=== PATIENT | male | born 1985 | race Caucasian/White ===

== ENCOUNTER 2016-11-25 19:22 | Inpatient (IN) | payer MEDICAID, OTHER ==
--- NOTE | 2016-11-25 19:56 | C.PDOC ---
History Of Present Illness Patient is a 31 y/o male presents to the emergency department requesting detox from heroin. Patient is pre-screened. Denies any physical complaints at this time. Time Seen by Provider: 11/25/16 19:50 Chief Complaint (Nursing): Substance Abuse History Per: Patient History/Exam Limitations: no limitations Onset/Duration Of Symptoms: Gradual Current Symptoms Are (Timing): Still Present Suicide/Self Injury Attempted (Context): None Modifying Factor(s): Other (heroin) Severity: None Pain Scale Rating Of: 0 Associated Symptoms: denies: Suicidal Thoughts, Suicidal Plan Involuntary Hold By: None Recent travel outside of the [place]: No Additional History Per: Patient Past Medical History Reviewed: Historical Data, Nursing Documentation, Vital Signs Vital Signs: Last Vital Signs Temp 98.3 F 11/25/16 19:26 Pulse 93 H 11/25/16 19:26 Resp 18 11/25/16 19:26 BP 123/75 11/25/16 19:26 Pulse Ox 97 11/25/16 19:58 Family History: States: Unknown Family Hx - Social History Hx Alcohol Use: No Hx Substance Use: Yes - Immunization History Hx Tetanus Toxoid Vaccination: No Hx Influenza Vaccination: No Hx Pneumococcal Vaccination: No Review Of Systems Except As Marked, All Systems Reviewed And Found Negative. Constitutional: Negative for: Fever, Chills Cardiovascular: Negative for: Chest Pain, Palpitations Respiratory: Negative for: Shortness of Breath Gastrointestinal: Negative for: Nausea, Vomiting, Abdominal Pain Neurological: Negative for: Headache, Dizziness Psych: Negative for: Suicidal ideation Physical Exam - Physical Exam Appears: Non-toxic, No Acute Distress Skin: Normal Color, Warm, Dry Head: Atraumatic, Normacephalic Eye(s): bilateral: Normal Inspection Neck: Normal ROM, Supple Chest: Symmetrical Extremity: Normal ROM Extremity: Bilateral: Atraumatic Neurological/Psych: Oriented x3, Normal Speech, Normal Cognition ED Course And Treatment - Laboratory Results Result Diagrams: 11/25/16 20:24 11/25/16 20:24 O2 Sat by Pulse Oximetry: 97 Pulse Ox Interpretation: Normal Progress Note: Blood work, urinalysis ordered and reviewed. Medical Decision Making Medical Decision Making: medically cleared Disposition - Disposition Disposition: HOSPITALIZED Disposition Time: 22:32 Condition: STABLE - Clinical Impression Clinical Impression: Opiate dependence - Scribe Statement The provider has reviewed the documentation as recorded by the Scribe Damonipal Valentin All medical record entries made by the Nohemiibmikel were at my direction and personally dictated by me. I have reviewed the chart and agree that the record accurately reflects my personal performance of the history, physical exam, medical decision making, and the department course for this patient. I have also personally directed, reviewed, and agree with the discharge instructions and disposition. Decision To Admit - Pt Status Changed To: Hospital Disposition Of: Inpatient - Admit Certification Admit to Inpatient:: After my assessment, the patient will require hospitalization for at least two midnights. This is because of the severity of symptoms shown, intensity of services needed, and/or the medical risk in this patient being treated as an outpatient. - InPatient: Physician Admission Certification: I certify that this patient requires 2 or more midnights of care for the following reason:: pt neeeds detox - . Bed Request Type: Detox Admitting Physician: Fco Mcleod Patient Diagnosis: Opiate dependence
[2016-11-25 20:32] LABS: BASO % 0.5 % (0.0-2.0); EOS # 0.1 K/uL (0.0-0.7); EOS % 1.7 % (0.0-4.0); HEMOGLOBIN 12.5 g/dL (12.0-18.0); LYMPH # 2.7 K/uL (1.0-4.3); LYMPH % 49.2 % (20.0-40.0); MEAN CELL VOLUME 87.9 fL (80.0-94.0); MEAN PLATELET VOLUME 7.2 fL (7.2-11.7); MONO # 0.3 K/uL (0.0-0.8); NEUT # 2.3 K/uL (1.8-7.0); NEUT % 42.6 % (50.0-75.0); NRBC % 0.1 % (0.0-2.0); RBC 4.32 Mil/uL (4.40-5.90); RED CELL DISTRIBUTION WIDTH 14.2 % (11.5-14.5); WHITE BLOOD COUNT 5.5 K/uL (4.8-10.8)
[2016-11-25 20:40] LABS: AST/SGOT 43 U/L (17-59); GFR AFRICAN-AMERICAN > 60; GFR NON-AFRICAN AMERICAN > 60
[2016-11-25 20:41] LABS: ALB/GLOB RATIO 1.3 (1.0-2.1); ALT/SGPT 50 U/L (21-72); BLOOD UREA NITROGEN 16 mg/dL (9-20)
[2016-11-25 20:54] LABS: URINE AMORPHOUS SEDIMENT RARE /ul (<OCC); URINE BACTERIA RARE (<OCC); URINE BILIRUBIN NEGATIVE (NEGATIVE); URINE BLOOD NEGATIVE (NEGATIVE); URINE CLARITY Hazy (Clear); URINE COLOR Yellow (YELLOW); URINE GLUCOSE (UA) NORMAL (Normal); URINE LEUKOCYTE ESTERASE NEG Leu/uL (Negative); URINE NITRATE NEGATIVE (NEGATIVE); URINE PROTEIN NEGATIVE (NEGATIVE)
[2016-11-25 21:43] LABS: BENZODIAZEPINES, UR NEGATIVE (NEGATIVE)
[2016-11-25 21:46] LABS: BARBITURATES, UR POSITIVE (NEGATIVE)
[2016-11-25 21:47] LABS: PHENCYCLIDINE, UR NEGATIVE (NEGATIVE)
[2016-11-25 21:48] LABS: OPIATES, UR POSITIVE (NEGATIVE)
[2016-11-26] MEDS ORDERED: Aluminum Hydroxide/Magnesium Hydroxide Susp (30 mL) PO PRN (00:23)
[2016-11-26 06:21] VITALS: RESP 18
--- NOTE | 2016-11-26 12:47 | PCM.PSYCH ---
Initial Psychiatric Evaluation - Initial Psychiatric Evaluation Type of Admission: Voluntary Legal Status: Capacity Chief Complaint (in patient's own words): "Trying to get clean" History of Present Illness and Precipitating Events: Patient examined with medical students present. This is a 31 year old male, single, no children, currently lives with parents in [place], [place]. He has been unemployed for the past few months. Previously worked in transport. He presented to [facility] ED last night (11/25/16). Patient reports 7 year history of IV heroin use. Currently, uses 50 bags IV heroin per day. Last use - 2 bags IV heroin, yesterday (4pm on 11/25/16). Occasional marijuana and Benzo use. Denies Cocaine/PCP/LSD/Adderall use. Patient states that his longest period of sobriety was 1 year and 3 months, of which he was jailed for approx. 10 months. Detox - 8 times; re[facility] - [facility]x ([facility] Patient plans to attend [facility] and is interested in methadone or vivitrol for maintenance. Past MedHx: Denies; report no seizure Hx Past PsychHx: Denies Legal: Probation - arrested in July for distribution, charges reduced to possession. Tobacco: 2ppd Alcohol: occasional use. Has not been drinking recently. States drinking causes him to relapse. Fam PsychHx: Denies Fam Substance Use: Father - Alcohol use d/o Current Medications: Active Medications Generic Name Dose Route Start Last Admin Trade Name Freq PRN Reason Stop Dose Admin Al Hydrox/Mg Hydrox/Simethicone 30 ml 11/26/16 00:23 Maalox 30 Ml PO TID PRN Indigestion / Heartburn Clonidine HCl 0.1 mg 11/26/16 00:23 Catapres PO Q8 PRN COWS Score More or Equal to 5 Hydroxyzine HCl 50 mg 11/26/16 00:25 Atarax PO Q6H PRN Anxiety Loperamide HCl 2 mg 11/26/16 00:23 Imodium PO Q8 PRN Diarrhea Methadone HCl 20 mg 11/26/16 09:45 11/26/16 11:47 Methadone PO 11/30/16 09:44 20 mg Q24H BEATRIZ Administration Taper Ondansetron HCl 4 mg 11/26/16 00:23 Zofran Tab PO Q8 PRN Nausea/Vomiting Pneumococcal Polyvalent Vaccine 0.5 ml 11/29/16 10:00 Pneumovax 23 Vaccine IM 11/29/16 10:01 .ONCE ONE Trazodone HCl 100 mg 11/26/16 00:25 Desyrel PO HS PRN Insomnia Past Psychiatric History - Past Psychiatric History Previous Treatment History: None History of ETOH/Drug Use: Per HPI History of Family Illness: Per HPI Pertinent Medical Hx (Current Medical&Sleep Prob, Allergies): Allergies Allergy/AdvReac Type Severity Reaction Status Date / Time No Known Allergies Allergy Verified 11/25/16 19:28 No Known Home Med 11/25/16 Review of Systems - EENT Eyes: Discharge (clear) Ears: UNREMARKABLE Nose/Mouth/Throat: Nasal Discharge - Psychiatric Psychiatric: As Per HPI Mental Status Examination - Personal Presentation Personal Presentation: Looks stated age - Affect Affect: Constricted - Motor Activity Motor Activity: Calm - Reliability in Providing Information Reliability in Providing Information: Good - Speech Speech: Organized - Mood Mood: Anxious - Formal Thought Process Formal Thought Process: No Impairment - Obsessions/Compulsions Obsessions: None Compulsions: None - Cognitive Functions Orientation: Person, Place, Situation, Time Sensorium: Drowsy Estimate of Intelligence: Average Judgement: Intact, as evidence by: Insight regarding need for hospitalization Memory: Recent intact, as evidence by: Ability to recall events of the day, Remote intact, as evidenced by: Abilit to recall sig. life events - Risk Risk: Withdrawal - Strength & Assets Inventory Strength & Assets Inventory: Family support, Cooperative DSM 5 DX - DSM 5 DSM 5 Diagnosis: Opioid withdrawal Opioid use disorder - severe - Recommended/Plan of Treatment Treatment Recommendations and Plan of Treatment: Opioids: Methadone detox As needed meds and vitamins Attend groups and activities [place] for abstinence and CBT for relapse prevention Support and psychoeducation Consider and encourage MAT Refer to after care Tobacco: Nicotine patch Mi for abstinence 34 mins Projected ELOS: 5 days Prognosis: good - Smoking Cessation Smoking Cessation Initiated: Yes
--- NOTE | 2016-11-26 13:05 | PCM.BM ---
<Nga Lea - Last Filed: 11/26/16 13:09> Treatment Plan Problems - Problems identified on initial assessmt Opiate Dependence Date Initiated: 11/26/16 Time Initiated: 09:00 Assessment reference: NA Status: Active Treatment assets and liabiliti Patient Assests: adapts well, cooperative, insightful, ADL independent Patient Liabilities: relationship conflicts, substance abuse, legal issue - Milieu Protocol Maintain good personal hygiene: daily Encourage regular showers, daily Remind patient to perform daily oral care, other Assist patient to perform ADL's (ADL ) Conduct patient checks and document Observation sheet: Q15 minutes Maintain personal safety: daily Educate patient to report safety concerns to staff, daily Monitor environment for contraband/sharps, every shift Educate patient to report safety concerns to staff, every shift Monitor environment for contraband/sharps Medication safety: Monitor for expected outcome, potential side effects: daily, every shift, Assess barriers to learning: daily, every shift, Assess readiness for medication education: daily, every shift <Fco Mcleod - Last Filed: 11/26/16 23:00> - Diagnosis (1) Opiate dependence Status: Acute Interventions: 11/26/16 23:00 * Assess 7x/week regarding severity of withdrawal * Educate regarding risks, benefits, side effects and alternatives of medications * Use Motivational Interviewing for abstinence * Use CBT for relapse prevention * Medication management for withdrawal symptoms * Encourage medication assisted treatment * <Angelica Darby - Last Filed: 11/27/16 15:34> Family Contact Family involvement: Patient does not wish Family/SO involvement Family contact: Patient agrees to contact - Goals for Treatment Patient goals for treatment: Transition to IOP treatment with Vivitrol component. Discharge/Continuing Care - Education Needs Education Needs: Patient Medication, Patient Diagnosis/Disease Process, Patient Coping Skills, Patient Anger Management skills, Patient Community resources - Discharge Discharge Criteria: No longer exhibiting s/s of withdrawal, Reduction of target symptoms Discharge to:: Home - Treatment Team Participation Patient/Family/SO Statement: 11/27/16 15:33 I want to detox so that I can go to probation and not get a violation. Discussed with Family/SO: Yes Was Patient/Family/SO present at Treatment Team Meeting: Yes
--- NOTE | 2016-11-27 11:45 | PCM.PYCHPN ---
Psychiatric Progress Note - Psychiatric Progress Note Patient seen today, length of contact: 16 min Patient Chief Complaint: "I'm still feeling it" Problems Identified/Issues Discussed: Patient examined with medical students present. Patient reports sweating in his sleep last night. States he did take Trazadone but still had trouble sleeping. Complains of restless leg syndrome. Denies diarrhea, pain and cramps. Discussed aftercare plans for [facility]. The pt is seen, chart reviewed, case discussed with staff. The pt is compliant with medications and reports no side-effects. Symptoms are improving but needs more time to stabilize. After care discussed, support and psychoeducation given. Medication Change: Yes (Increase Trazadone) Medical Record Reviewed: Yes Mental Status Examination - Cognitive Function Orientation: Person, Place, Situation, Time Memory: Intact - Mood Mood: Anxious - Affect Affect: Constricted - Speech Speech: Appropriate - Formal Thought Process Formal Thought Process: No Impairment - Suicidal Ideation Suicidal Ideation: No - Homicidal Ideation Homicidal Ideation: No Goal/Treatment Plan - Goal/Treatment Plan Need for Continued Stay: Remain at risks for inpatient hospitalization, Discharge may exacerbated symptoms Progress Toward Problem(s) and Goals/Treatment Plan: Opioids: Methadone detox As needed meds and vitamins Attend groups and activities [place] for abstinence and CBT for relapse prevention Support and psychoeducation Consider and encourage MAT Refer to after care Tobacco: Nicotine patch Mi for abstinence
--- NOTE | 2016-11-28 12:19 | PCM.PYCHPN ---
Psychiatric Progress Note - Psychiatric Progress Note Patient seen today, length of contact: 16 min Patient Chief Complaint: "Little nauseous" Problems Identified/Issues Discussed: Patient examined with medical students present. Patient reports improved sleep. Aftercare plan remains [facility]. Patient requested prescription, for sleep medication, be given at discharge. Chart reviewed, and case discussed with staff. Support given, CBT and [place] used briefly. No new symptoms reported, improving slowly and needs more time. No SEs from medications, risks discussed. Aftercare discussed. Medication Change: Yes (detox changes daily) Medical Record Reviewed: Yes Mental Status Examination - Cognitive Function Orientation: Person, Place, Situation, Time Memory: Intact Attention: Poor Concentration: WNL Fund of Knowledge: WNL - Mood Mood: Anxious - Affect Affect: Constricted - Speech Speech: Appropriate - Formal Thought Process Formal Thought Process: No Impairment - Suicidal Ideation Suicidal Ideation: No - Homicidal Ideation Homicidal Ideation: No Goal/Treatment Plan - Goal/Treatment Plan Need for Continued Stay: Remain at risks for inpatient hospitalization, Discharge may exacerbated symptoms, Severe functional impairment Progress Toward Problem(s) and Goals/Treatment Plan: Opioids: Methadone detox As needed meds and vitamins Attend groups and activities [place] for abstinence and CBT for relapse prevention Support and psychoeducation Consider and encourage MAT Refer to after care Tobacco: Nicotine patch Mi for abstinence Estimated Date of D/C: 11/29/16
[2016-11-28 13:21] VITALS: O2SAT 98
[2016-11-29 06:28] VITALS: BP 90/60; PULSE 64; TEMP 97.9
--- NOTE | 2016-11-29 08:33 | PCM.PYCHDC ---
Mental Status Examination - Mental Status Examination Orientation: Person, Place, Situation, Time Memory: Intact Mood: Other (Hopeful) Affect: Broad Speech: Appropriate Attention: WNL Concentration: WNL Association: WNL Fund of Knowledge: WNL Formal Thought Process: No Impairment Suicidal Ideation: No Current Homicidal Ideation?: No Discharge Summary - Discharge Note Reason for Hospitalization: Opioid detox Consultations:: List each consultation separately and include: 1. Reason for request. 2. Findings. 3. Follow-up Summary of Hospital Course include:: 1. Description of specific treatment plan utilized for patients during their course of treatmen. 2. Summarize the time- course for resolution of acute symptoms and/or regressed behaviors. 3. Describe issues identified and worked on during hospitalization. 4. Describe medication utilized. 5. Describe medical problems identified and treated. 6. Reassessment of suicide risk Summary of Hospital Course: 11/29/16 "I'm good" Patient examined with medical students present. Patient reported sleeping well. Requested prescription for sleep medication. Patient states that he will be living with his parents and has deleted the phone numbers of friends who are a bad influence. Support given, CBT and [place] used briefly No new symptoms reported. No SEs from medications, risks discussed. After care discussed. He went to for IOP and naltrexone - Final Diagnosis (DSM 5) Condition upon Discharge: STABLE DSM 5: Opioid withdrawal Opioid use disorder - severe Disposition: HOME/ ROUTINE Follow-up Treatment Plan: Continue below medications after discharge. Follow after care plan as discussed. Use relapse prevention skills. Return to ER or call 911 if suicidal, homicidal or symptoms relapse. Stay away from stress, alcohol and drugs. See primary doctor once a year. Prescriptions/Medication Reconciliation: hydrOXYzine HCl [Atarax] 50 mg PO Q8 #60 tab traZODone [Desyrel] 100 mg PO HS PRN #30 tab PRN Reason: Insomnia - Smoking Cessation Smoking Cessation Medication prescribed: No - Antipsychotic Medications Pt discharged on 2 or more routine antipsychotic medications: No
[2016-11-29] MEDS ORDERED: Pneumococcal 23-Valent Vaccine IM ONE (10:00)
== END 2016-11-29 10:30 | disposition home or self-care (01) | DRG 745 ==
LOC: C.ER 19:22 → C.7D 21:59
PROVIDERS: ADMIT Psychiatry & Neurology Psychiatry; ATTEND Psychiatry & Neurology Psychiatry
PROC: HZ2ZZZZ Detoxification Services for Substance Abuse Treatment (ICD-10-PCS; principal; 2016-11-25)
PROC: HZ52ZZZ Individual Psychotherapy for Substance Abuse Treatment, Cognitive-Behavioral (ICD-10-PCS; 2016-11-25)
PROC: HZ42ZZZ Group Counseling for Substance Abuse Treatment, Cognitive-Behavioral (ICD-10-PCS; 2016-11-25)
PROC: HZ59ZZZ Individual Psychotherapy for Substance Abuse Treatment, Supportive (ICD-10-PCS; 2016-11-25)
PROC: HZ56ZZZ Individual Psychotherapy for Substance Abuse Treatment, Psychoeducation (ICD-10-PCS; 2016-11-25)
PROC: HZ46ZZZ Group Counseling for Substance Abuse Treatment, Psychoeducation (ICD-10-PCS; 2016-11-25)
DX: F11.23 Opioid dependence with withdrawal (principal); F17.210 Nicotine dependence, cigarettes, uncomplicated; F12.90 Cannabis use, unspecified, uncomplicated; F13.90 Sedative, hypnotic, or anxiolytic use, unspecified, uncomplicated; G47.00 Insomnia, unspecified